=== PATIENT | female | born 1960 | race Hispanic/Latino ===

== ENCOUNTER 2018-08-11 11:15 | Outpatient (CLI) | payer OTHER ==
[2018-08-11 12:27] LABS: Mean Corpuscular HGB CONC 31.4 g/dL (32.0-36.0); Mean Corpuscular Hemoglobin 27.6 pg (27.0-31.0); Mean Corpuscular Volume 87.9 fL (78.0-98.0); Mean Platelet Volume 6.3 fL (7.4-10.4); Platelet Count 272 thou/uL (130-400); Red Blood Cell (RBC) Count 4.72 mill/uL (4.20-5.40)
[2018-08-11 12:53] LABS: Anion Gap 15 mmol/L (10-20); BUN (Urea Nitrogen) 19 mg/dL (9.8-20.1); Calc. Creatinine Clearance 0 mL/min (70-130); Calcium 9.5 mg/dL (7.8-10.44); Carbon Dioxide 25 mmol/L (22-29); Chloride 103 mmol/L (98-107); Estimated GFR-MDRD 81; Glucose 94 mg/dL (70-105); Potassium 4.2 mmol/L (3.5-5.1); Sodium 139 mmol/L (136-145)
--- NOTE | 2018-08-17 14:28 | EKG ---
Test Reason : Blood Pressure : / mmHG Vent. Rate : 063 BPM Atrial Rate : 063 BPM P-R Int : 144 ms QRS Dur : 082 ms QT Int : 444 ms P-R-T Axes : 038 066 013 degrees QTc Int : 454 ms Normal sinus rhythm ST abnormality, possible digitalis effect Abnormal ECG No previous ECGs available Confirmed by JOSE ARANA (2) on 08/17/2018 2:28:06 PM Referred By: [email or web address] Confirmed By:JOSE ARANA
== END 2018-08-11 11:16 | disposition home or self-care (01) ==
LOC: LABBT 11:15
PROVIDERS: ATTEND Orthopaedic Surgery
DX: Z01.818 Encounter for other preprocedural examination (principal); S83.212A Bucket-handle tear of medial meniscus, current injury, left knee, initial encounter
CPT/HCPCS: 80048; 85027; 93005; 93010

== ENCOUNTER 2018-08-14 07:28 | Day surgery (SDC) | payer OTHER ==
[2018-08-11 11:55] VITALS: BMI 31.1
[2018-08-14] MEDS ORDERED: CEFAZOLIN/Water 2 GM/20 ML SYRINGE ONE (08:32)
[2018-08-14] MEDS ORDERED: Midazolam HCl 2 mg/2 ml Vial ONE ×2 (08:58→09:05)
[2018-08-14] MEDS ORDERED: Fentanyl 100 MCG/2 ML VIAL ONE ×4 (09:05→12:20)
[2018-08-14] MEDS ORDERED: PROPOFOL 20 ML ONE (09:24)
[2018-08-14] MEDS ORDERED: Bupivacaine HCl 0.5%/Epinephrine 1:200,000/PF 30 ml Vial ONE (10:11)
[2018-08-14] MEDS ORDERED: Ketorolac Tromethamine 30 MG/ML VIAL ONE (10:39)
[2018-08-14] MEDS ORDERED: Ondansetron HCl/PF 4 MG/2 ML Vial ONE (10:39)
[2018-08-14] MEDS ORDERED: Lidocaine 1% PF 5 ML VIAL ONE (10:39)
[2018-08-14] MEDS ORDERED: PROPOFOL 200 MG/20 ML VIAL ONE (10:39)
--- NOTE | 2018-08-14 12:53 | OP ---
DATE OF OPERATION: 08/14/2018 PREOPERATIVE DIAGNOSIS: Tear of the posterior horn of the medial meniscus of the left knee. POSTOPERATIVE DIAGNOSIS: Tear of the posterior horn of the medial meniscus of the left knee. PROCEDURE: Arthroscopy left knee with partial medial meniscectomy. SURGEON: Dr. Lev Caballero ANESTHESIA: General. TECHNIQUE: The patient was given preoperative IV antibiotics, taken to the operating room and placed in supine position. Satisfactory general anesthesia was performed. Left lower extremity was placed in a leg thompson and sterilely prepped and draped in usual fashion. After exsanguination, the tourni quet was raised 300 mmHg. The knee was scoped the usual inferior medial and inferior lateral portals . Upon entering the suprapatellar pouch, the patient had no significant synovitis. There was a smal l medial plica which was removed with the shaver. There was no arthritis in the patellofemoral joint and the patellar rode very well in the femoral groove. The intercondylar notch revealed an intact n ormal anterior cruciate ligament. The lateral compartment had no articular cartilage damage. There were no arthritic changes. The lateral meniscus thoroughly inspected and probed and was free of path ology. Medial compartment had some mild chondral thinning consistent with mild arthritis. There was a tear in the posterior horn and posterior root of the medial meniscus and using different angled ar throscopic biters as well as the shaver and surface arthrowand partial medial meniscectomy was perfor med removing approximately 10% of the entire meniscus. The body and anterior horn of the medial meni scus was normal. During the procedure, all the debris was irrigated out of the knee joint. The inst ruments removed, the portals were closed with 3-0 Rapide. The knee joint was injected with 30 mL of 0.5% Marcaine with epinephrine. Sterile dressing was applied. Tourniquet was released. The leg was taken out of the leg thompson. The patient was awakened, extubated, and transferred to recovery room in stable condition. ESTIMATED BLOOD LOSS: None. COMPLICATIONS: None. TOURNIQUET TIME: 17 minutes. DISCHARGE MEDICATIONS: Tylenol #4 one every 6 hours as needed for pain, #50 with 1 refill.
== END 2018-08-14 14:40 | disposition home or self-care (01) ==
LOC: SDC 07:28
PROVIDERS: ATTEND Orthopaedic Surgery
PROC: 0SBD4ZZ Excision of Left Knee Joint, Percutaneous Endoscopic Approach (ICD-10-PCS; principal; 2018-08-14)
DX: S83.242A Other tear of medial meniscus, current injury, left knee, initial encounter (principal); M67.52 Plica syndrome, left knee; E11.9 Type 2 diabetes mellitus without complications; Z91.040 Latex allergy status; Z88.8 Allergy status to other drugs, medicaments and biological substances; W19.XXXA Unspecified fall, initial encounter
CPT/HCPCS: 96374; J0670; J2250; J2704; J3010